=== PATIENT | female | born 1990 | race Caucasian/White ===

== ENCOUNTER 2018-02-16 10:12 | Emergency (ER) | payer MEDICAID ==
[~2018-02-16] VITALS: Ht 162.6 cm; Wt 60.0 kg
[~2018-02-16 10:12] MED LIST: ALBU8I INH; METH5SOL3 PO; ZOFR4TAB3 SL
[2018-02-16 10:18] VITALS: BP 130/71; PULSE 70; RESP 17; TEMP 98.4; O2SAT 98
[2018-02-16] MEDS ORDERED: SODIUM CHLOR 0.9% 1000 ML INJ 1,000 ML IV ONE (10:31)
[2018-02-16] MEDS ORDERED: KLON2TAB PO (10:33)
[2018-02-16 10:35] VITALS: BP 128/73; PULSE 67; RESP 15; O2SAT 98
[2018-02-16] MEDS ORDERED: SODIUM CHLORIDE 0.9% FLUSH 10 ML FLUSH IVF PRN (10:45)
[2018-02-16] MEDS ORDERED: ONDANSETRON HCL 4 MG/2 ML VIAL IV PUSH ONE (10:45)
--- NOTE | 2018-02-16 10:45 | PD ---
HPI Chief Complaint: Thread Roller Problem/Complaint Time Seen by Provider: 10:30 Travel History International Travel<30 days: No Contact w/Intl Traveler<30days: No Traveled to known affect area: No History of Present Illness HPI 27-year-old female presents emergency department with a number of gynecological complaints. First of all, patient states that she feels she underwent a spontaneous approximately a week and a half ago, with heavy clots and products of conception past about a week ago. She states since that time she has been very nauseous, has had vaginal discharge which is odorous. Second issue is that she states her now ex-boyfriend told her that he had intercourse with his ex-girlfriend, who reportedly had an STD of either gonorrhea or chlamydia. She is here to have that evaluated as well. She denies significant abdominal cramping but she is very nauseous. She denies fever, chills, or other symptoms. She denies any rash. Patient has not vomited. She denies diarrhea or urinary symptoms. She has no known drug allergies. PFSH Past Medical History Asthma: Yes Immunizations Current: Yes Ulcer: Yes ?: Not LMP: recent miscarriage : 3 Miscarriage: 1 : 2 Dilation and Curettage (D&C): Yes Past Surgical History Appendectomy: Yes Cardiac Surgery: Yes ("open heart") Social History Alcohol Use: No Tobacco Use: Yes (1/2 ppd) Substance Use: Yes ("whatever") Allergies-Medications (Allergen,Severity, Reaction): Coded Allergies: No Known Allergies (Verified Allergy, Unknown, 02/16/18) Reported Meds & Prescriptions Reported Meds & Active Scripts Active Reported Klonopin (Clonazepam) 2 Mg Tab 2 Mg PO TID Review of Systems Except as stated in HPI: all other systems reviewed are Neg General / Constitutional: No: Fever, Chills Eyes: No: Visual changes HENT: No: Headaches Cardiovascular: No: Chest Pain or Discomfort Respiratory: No: Shortness of Breath Gastrointestinal: Positive: Nausea, No: Vomiting, Diarrhea, Abdominal Pain Genitourinary: Positive: Discharge, Other (See history of present illness), No : Urgency, Frequency, Dysuria, Pelvic Pain, Flank Pain Musculoskeletal: No: Pain Skin: No Rash Neurologic: No: Weakness Psychiatric: No: Depression Endocrine: No: Polydipsia Hematologic/Lymphatic: No: Easy Bruising Physical Exam Narrative GENERAL: Patient appears in mild to moderate distress. SKIN: Warm and dry. Normal color. Normal turgor. No rash. HEAD: Atraumatic. Normocephalic. EYES: Pupils equal and round. No scleral icterus. No injection or drainage. ENT: No nasal bleeding or discharge. Mucous membranes pink and moist. NECK: Trachea midline. Supple nontender. CARDIOVASCULAR: Regular rate and rhythm. RESPIRATORY: No accessory muscle use. Clear to auscultation. Breath sounds equal bilaterally. GASTROINTESTINAL: Abdomen soft, non-tender, nondistended. Hepatic and splenic margins not palpable. PELVIC: The perineum appears normal without rash or significant exudate. Vaginal exam shows no friable tissue with yellowish-green orders discharge noted. The also appears closed. No bleeding is noted. Wet prep was obtained and sent to the lab. MUSCULOSKELETAL: Extremities without clubbing, cyanosis, or edema. No obvious deformities. NEUROLOGICAL: Awake and alert. No obvious cranial nerve deficits. Motor grossly within normal limits. Five out of 5 muscle strength in the arms and legs. Normal speech. PSYCHIATRIC: Appropriate mood and affect; insight and judgment normal. Data Data Last Documented VS Vital Signs Date Time Temp Pulse Resp B/P (MAP) Pulse Ox O2 Delivery O2 Flow Rate FiO2 02/16/18 10:18 98.4 70 17 130/71 (90) 98 Orders Orders Comprehensive Metabolic Panel (02/16/18 10:31) Gc And Chlamydia Pcr (02/16/18 10:31) Wet Prep Profile (02/16/18 10:31) Urinalysis - C+S If Indicated (02/16/18 10:31) Iv Access Insert/Monitor (02/16/18 10:31) Ecg Monitoring (02/16/18 10:31) Sodium Chloride 0.9% Flush (Ns Flush) (02/16/18 10:45) Sodium Chlor 0.9% 1000 Ml Inj (Ns 1000 M (02/16/18 10:31) Ed Urine Pregnancytest Poc (02/16/18 10:31) Ondansetron Inj (Zofran Inj) (02/16/18 10:45) Us Pelvis Comp W Dop Transvag (02/16/18 ) Ceftriaxone Inj (Rocephin Inj) (02/16/18 12:00) Azithromycin (Zithromax) (02/16/18 12:00) Ondansetron Odt (Zofran Odt) (02/16/18 12:00) Lidocaine 1% Inj (Xylocaine 1% Inj) (02/16/18 12:30) Hydroxyzine Pamoate (Vistaril) (02/16/18 12:30) Urine Culture (02/16/18 11:10) Metronidazole (Flagyl) (02/16/18 12:30) Labs Laboratory Tests Test 02/16/18 10:51 02/16/18 11:10 02/16/18 11:50 Blood Urea Nitrogen 14 MG/DL Creatinine 0.78 MG/DL Random Glucose 84 MG/DL Total Protein 7.6 GM/DL Albumin 3.9 GM/DL Calcium Level 8.8 MG/DL Alkaline Phosphatase 73 U/L Aspartate Amino Transf (AST/SGOT) 29 U/L Alanine Aminotransferase (ALT/SGPT) 47 U/L Total Bilirubin 0.6 MG/DL Sodium Level 140 MEQ/L Potassium Level 3.8 MEQ/L Chloride Level 111 MEQ/L Carbon Dioxide Level 22.2 MEQ/L Anion Gap 7 MEQ/L Estimat Glomerular Filtration Rate 90 ML/MIN Urine Color YELLOW Urine Turbidity HAZY Urine pH 6.0 Urine Specific [place] 1.033 Urine Protein 30 mg/dL Urine Glucose (UA) NEG mg/dL Urine Ketones TRACE mg/dL Urine Occult Blood SMALL Urine Nitrite NEG Urine Bilirubin NEG Urine Urobilinogen 4.0 MG/DL Urine Leukocyte Esterase MOD Urine RBC 4 /hpf Urine WBC 11 /hpf Urine Squamous Epithelial Cells 11 /hpf Urine Bacteria OCC /hpf Urine Mucus MANY /lpf Urine Trichomonas FEW Microscopic Urinalysis Comment CULTURE INDICATED Clue Cells (Wet Prep) NONE SEEN Vaginal Trichomonas (Wet Prep) PRESENT Vaginal Yeast (Wet Prep) NONE SEEN MDM Medical Decision Making Medical Screen Exam Complete: Yes Emergency Medical Condition: Yes Differential Diagnosis Exposure to STD. Chlamydia. Gonorrhea. Possible retained products of conception. PID. Nausea. Narrative Course Patient appears medically stable at time of exam. Labs ordered including CBC, CMP, urinalysis, urinary test, urine chlamydia and gonorrhea screening. Patient is given Zofran 4 mg IV as well as 1000 mL of normal saline bolus. Ultrasound of the pelvis is ordered to rule out retained products of conception. Pelvic exam is performed. Wet prep was sent to the lab. Patient is given Rocephin 1000 mg IM. Patient is given 1200 mg azithromycin p.o. 1. Ultrasound shows normal-appearing uterus and endometrium with ovarian cysts present. Wet prep is positive for trichomonas. Patient is given metronidazole 2000 mg p.o. once. Patient is given a prescription for Zofran 4 mg 1 every 6 hours as needed nausea #20. Patient is given Vistaril 25 mg every 6 hours as needed anxiety #20. Patient is recommended to follow-up with [facility]. Diagnosis Primary Impression: Encounter for assessment of sexually transmitted disease exposure Referrals: [facility] Patient Instructions: Chlamydia (ED), General Instructions, Gonorrhea (ED), Trichomoniasis (ED) Additional Instructions: Patient is given Rocephin 1000 mg IM. Patient is given 1200 mg azithromycin p.o. 1. Ultrasound shows normal-appearing uterus and endometrium with ovarian cysts present. Wet prep is positive for trichomonas. Patient is given metronidazole 2000 mg p.o. once. Patient is given a prescription for Zofran 4 mg 1 every 6 hours as needed nausea #20. Patient is given Vistaril 25 mg every 6 hours as needed anxiety #20. Patient is recommended to [facility] with [facility]. Med/Other Pt SpecificInfo: Prescription(s) given Disposition: 01 DISCHARGE HOME Condition: Stable Tera Nance Feb 16, 2018 10:45
[2018-02-16 11:48] LABS: ALBUMIN 3.9 GM/DL (3.4-5.0); ALT (GPT) 47 U/L (10-53); AST (GOT) 29 U/L (15-37); BICARBONATE 22.2 MEQ/L (21.0-32.0); BLOOD UREA NITROGEN 14 MG/DL (7-18); CALCIUM 8.8 MG/DL (8.5-10.1); CHLORIDE 111 MEQ/L (98-107); CREATININE 0.78 MG/DL (0.50-1.00); GLOMERULAR FILTRATION RATE 90 ML/MIN (>89); GLUCOSE,RANDOM 84 MG/DL (74-106); SODIUM (NA) 140 MEQ/L (136-145)
[2018-02-16 11:50] LABS: ALKALINE PHOSPHATASE 73 U/L (45-117); TOTAL BILIRUBIN ADULT 0.6 MG/DL (0.2-1.0); TOTAL PROTEIN 7.6 GM/DL (6.4-8.2)
[2018-02-16] MEDS ORDERED: ONDANSETRON ODT 4 MG TAB PO ONE (12:00)
[2018-02-16] MEDS ORDERED: AZITHROMYCIN 600 MG TAB PO ONE (12:00)
[2018-02-16] MEDS ORDERED: LIDOCAINE HCL 1% 50 ML VIAL INFIL ONE (12:00)
--- NOTE | 2018-02-16 12:02 | RADRPT ---
EXAM DATE/TIME: 02/16/2018 10:46 [place] COMPARISON: No previous studies available for comparison. INDICATIONS : Pelvic pain. Miscarriage 10 days ago. MEDICAL HISTORY : Asthma. Ulcer. Miscarriage 10 days ago. SURGICAL HISTORY : Appendectomy. Open heart surgery. Dilation and curettage. ENCOUNTER: Initial ACUITY: 1 day PAIN SCORE: 5/10 LOCATION: Bilateral Paraspinal MEASUREMENTS: UTERUS: 7.1 x 3.2 x 3.9 cm ENDOMETRIAL STRIPE: 2 mm RIGHT OVARY: 5.0 x 1.5 x 2.6 cm LEFT OVARY: 5.0 x 2.6 x 2.3 cm FINDINGS: UTERUS: The myometrium has homogeneous echotexture without mass. The endometrium is unremarkable . RIGHT OVARY: There is a 1.4 x 0.6 x 1.3 cm cyst. LEFT OVARY: There is a 1.4 x 1.8 x 1.5 cm cyst. MISCELLANEOUS: No free fluid. CONCLUSION: 1. The uterus and endometrium are unremarkable. 2. Bilateral ovarian cysts. James Laws MD on February 16, 2018 at 11:57 Board Certified Radiologist. This report was verified electronically.
[2018-02-16 12:05] LABS: BACTERIA, URINE OCC /hpf; BLOOD, URINE SMALL (NEG); GLUCOSE,URINE NEG (NEG); KETONE, URINE TRACE mg/dL (NEG); MUCUS URINE MANY /lpf (OCC); NITRITE,URINE NEG (NEG); SQUAMOUS EPITHELIAL CELL URINE 11 /hpf (0-5); URINE COLOR YELLOW (YELLW/STRAW); URINE LEUKOCYTE ESTERASE MOD (NEG)
[2018-02-16 12:26] LABS: BILIRUBIN, URINE NEG (NEG)
[2018-02-16 12:27] LABS: TRICHOMONAS, URINE FEW
[2018-02-16] MEDS ORDERED: metroNIDAZOLE 500 MG TAB PO ONE (12:30)
[2018-02-16] MEDS ORDERED: LIDOCAINE HCL 1% 30 ML VIAL INFIL ONE (12:30)
[2018-02-16] MEDS ORDERED: ZOFR4TAB PO (12:32)
[2018-02-16] MEDS ORDERED: VIST25CA PO (12:32)
[2018-02-16 13:00] VITALS: BP 131/76
[2018-02-16] MEDS ORDERED: PROM25TA10 PO (13:01)
== END 2018-02-16 13:00 | disposition home or self-care (01) ==
LOC: NEPD 10:12
DX: Z20.2 Contact with and (suspected) exposure to infections with a predominantly sexual mode of transmission (principal); R11.0 Nausea; R10.9 Unspecified abdominal pain; N89.8 Other specified noninflammatory disorders of vagina; J45.909 Unspecified asthma, uncomplicated; R82.90 Unspecified abnormal findings in urine; Z72.0 Tobacco use
CPT/HCPCS: 76830; 76856; 80053; 81001; 84703; 87086; 87210; 87491; 87591; 93975; 96372; 99284; J0696